=== PATIENT | male | born 1955 | race African-American/Black ===

== ENCOUNTER 2024-08-27 00:26 | Emergency (ER) | payer OTHER ==
[~2024-08-27] VITALS: Ht 188 cm; Wt 100.0 kg
[2024-08-27 00:29] VITALS: TEMP 37; O2SAT 100
[2024-08-27] MEDS ORDERED: BACITRACIN 14GM TUBE TOP ONE (00:45)
[2024-08-27] MEDS: ACETAMINOPHEN 325MG TABLET PO ONE (01:24)
[2024-08-27] MEDS: BACITRACIN ZINC OINT UDPKT TOP NR (03:28)
[2024-08-27] MEDS ORDERED: ACET-2708 MT (03:35)
[2024-08-27 04:12] VITALS: BP 136/85; PULSE 75; RESP 13; O2SAT 98
== END 2024-08-27 04:18 | disposition home or self-care (01) ==
LOC: ER 00:26
DX: S00.81XA Abrasion of other part of head, initial encounter (principal); S00.212A Abrasion of left eyelid and periocular area, initial encounter; I67.82 Cerebral ischemia; F10.129 Alcohol abuse with intoxication, unspecified; Z79.899 Other long term (current) drug therapy; W19.XXXA Unspecified fall, initial encounter; Y93.89 Activity, other specified; Y92.89 Other specified places as the place of occurrence of the external cause; Y99.8 Other external cause status; Y90.9 Presence of alcohol in blood, level not specified
CPT/HCPCS: 36415; 70486; 80320; 82962; 99284; G0480